=== PATIENT | female | born 1990 | race African-American/Black ===

== ENCOUNTER 2017-07-27 12:32 | Outpatient (CLI) | payer OTHER ==
[2017-07-27] MEDS ORDERED: GADOBUTROL 10 MMOL/10 ML VIAL IVP ONE (14:44)
--- NOTE | 2017-07-28 08:16 | MRI Report ---
EXAM: MRI LUMBAR SPINE WITHOUT AND WITH CONTRAST EXAM DATE: 07/27/2017 03:31 PM. CLINICAL HISTORY: 27-year-old woman status post lumbar laminectomy at L4-L5 for schwannoma removal on 03/31/2017 with possible CSF leak. COMPARISONS: None. TECHNIQUE: Multiplanar, multisequence T1-weighted and fluid-sensitive sequences of the lumbar spine f rom T12 to S1 before and after administration of intravenous contrast. IV contrast: 9 cc Gadavist. Ot her: None. FINDINGS: Spinal Cord: The conus terminates at L1-L2. Cauda equina nerve roots are normal in appearance. No vivien dence of nodularity or abnormal enhancement. Alignment: Normal. No scoliosis or spondylolisthesis. Bone Marrow: Five [id number] lumbar vertebral bodies are present. No gross fractures or bone les ions. No bone marrow edema or abnormal enhancement. Disk Levels/Facets: T12-L1: Unremarkable. L1-L2: Status post L1 laminectomy. No significant central canal or neural foraminal narrowing. L2-L3: Unremarkable. L3-L4: Unremarkable. L4-L5: There is disk desiccation without significant height loss. No significant central canal or di ral foraminal narrowing. L5-S1: Unremarkable. Spinal Canal: No enhancing masses within the spinal canal. No epidural fluid collection. Musculature: Normal. No edema, abnormal enhancement, or fatty atrophy. Other: Postsurgical changes are present in the posterior soft tissues at L1, including enhancing post surgical granulation tissue. No fluid collection along the thecal sac or posterior soft tissues to s uggest CSF leak, postoperative seroma, or abscess. IMPRESSION: 1. Status post L1 laminectomy. No epidural or soft tissue fluid collection to suggest CSF leak, posto perative seroma, or abscess. 2. Conus and cauda equina nerve roots are normal in appearance without nodularity or abnormal enhance ment to suggest residual schwannoma. Comment: The following findings are so common in adults without low back pain that while we report th eir presence, they must be interpreted with caution and in the context of the clinical situation. (Re harmony Vidal et al, Spine 2001) Prevalence of findings in patients without low back pain: Disk degeneration (any evidence): 92% Disk desiccation/T2 signal loss: 83% Disk height loss: 56% Disk bulge: 64% Disk protrusion: 32% Annular tear/high intensity zone: 38% TESS Referring Provider Line: [phone] SITE ID: [id number]
--- NOTE | 2017-07-28 08:19 | MRI Report ---
EXAM MRA BRAIN EXAM DATE: 07/27/2017 03:30 PM. CLINICAL HISTORY: 27-year-old woman with headaches, decreased vision with turning head to left, and h istory of lumbar surgery for neoplasm removal. Concern for CSF leak. COMPARISON: None. TECHNIQUE: Multiplanar, multisequence MRA sequences of the brain were performed. Other: None. Post-pr ocessing: Multiplanar 3D MIP reconstructions. IV Contrast: None. FINDINGS: RIGHT: Visualized Internal Carotid Artery: Patent without significant stenosis. No evidence of aneurysm. Anterior Cerebral Artery: Patent without significant stenosis or aneurysm. Middle Cerebral Artery: Patent without significant stenosis or aneurysm. Posterior Cerebral Artery: Patent without significant stenosis or aneurysm. Posterior Communicating Artery: Patent. No aneurysm. Visualized Vertebral Artery: Patent without significant stenosis. No evidence of dissection or aneury sm. LEFT: Visualized Internal Carotid Artery: Patent without significant stenosis. No evidence of aneurysm. Anterior Cerebral Artery: Patent without significant stenosis or aneurysm. Middle Cerebral Artery: Patent without significant stenosis or aneurysm. Posterior Cerebral Artery: Patent without significant stenosis or aneurysm. Posterior Communicating Artery: Patent. No aneurysm. Visualized Vertebral Artery: Patent without significant stenosis. No evidence of dissection or aneury sm. CENTRAL: Anterior Communicating Artery: Patent. No aneurysm. Basilar: Patent without significant stenosis, dissection, or aneurysm. IMPRESSION: 1. Normal brain MRA. No stenoses or aneurysms. [facility] Referring Provider Line: [phone] SITE ID: [id number]
--- NOTE | 2017-07-28 08:24 | MRI Report ---
EXAM: MR ANGIOGRAM NECK EXAM DATE: 07/27/2017 03:30 PM. CLINICAL HISTORY: 27-year-old woman with headaches, decreased vision when turning head to the left, a nd history of lumbar surgery for neoplasm removal. Concern for CSF leak. COMPARISON: None. TECHNIQUE: Multiplanar, multisequence MRA sequences of the neck were performed. Other: None. Post-pro cessing: Multiplanar 3D MIP reconstructions. IV Contrast: None. Evaluation of arterial stenosis is b ased on a NASCET method of measurement. Patient terminated the exam prematurely due to nausea with contrast. Postcontrast images could not be acquired. FINDINGS: RIGHT Common and Internal carotid: Patent. No dissection or significant stenosis. Flow-related signal loss is present at the bifurcation. External Carotid: Patent. No dissection or significant stenosis. Vertebral: Patent. No dissection or significant stenosis. Flow-related signal loss is present at the V3 segment. LEFT Common and Internal carotid: Patent. No dissection or significant stenosis. Flow-related signal loss is present at the bifurcation. External Carotid: Patent. No dissection or significant stenosis. Vertebral: Patent. No dissection or significant stenosis. Flow-related signal loss is present at the V3 segment. Other: Limited evaluation of the neck soft tissues is unremarkable. IMPRESSION: 1. Normal MRA of the neck. No significant vascular stenosis or dissection. [facility] Referring Provider Line: [phone] SITE ID: [id number]
--- NOTE | 2017-07-28 12:26 | MRI Report ---
EXAM: MRI BRAIN WITHOUT AND WITH CONTRAST EXAM DATE: 07/27/2017 03:30 PM. CLINICAL HISTORY: CSF LEAK AFTER LUMBAR NEOPLASM REMOVAL. When the patient turns her head to the left , she experiences a "curtain" over the vision in the left eye. COMPARISON: MRI lumbar spine 07/27/2017. MRA brain 07/27/2017. TECHNIQUE: Multiplanar, multisequence T1-weighted and fluid-sensitive MR sequences of the brain were performed. Sequences optimized for routine evaluation. Other: None. Without and with IV Contrast: 9 c c Gadavist. FINDINGS: No cerebellar tonsillar ectopia is present. There is no sagging appearance to the midbrain or kishore. No abnormal diffusion signal is identified in the brain parenchyma. A small focus of magnetic suscept ibility is seen in the subcortical white matter of the left occipital lobe just above the occipital h orn. Ventricles and sulci are within normal limits. No extra-axial fluid collection is present. No abnorma l T2 or flair hyperintensities are present in the brain parenchyma. No abnormal T1 shortening is present in the brain parenchyma. Expected enhancement is seen in the jonh or dural venous sinuses. There is a partially empty sella turcica. The pituitary gland enhances in no rmal fashion. Cavernous sinuses enhance in symmetric fashion. No mass is identified in either Meckel's cave. No mass is present in either orbit. Prominent lymph nodes in the upper neck bilaterally might well be reactive in nature. Expected flow voids are seen in the major intracranial vessels at the skull base. IMPRESSION: 1. A tiny focus of magnetic susceptibility in the white matter of the left occipital lobe is nonspeci fic. This is nonspecific and have been described in many entities, including as the sequela of prior trauma or a remote infarct that had a hemorrhagic component. A tiny cavernous malformation or a paren chymal calcification could also have this appearance. 2. There are no MRI findings to suggest intracranial hypotension. 3. No acute CVA is present on diffusion-weighted images. 4. No intracranial mass is identified [facility] Referring Provider Line: [phone] SITE ID: [id number]
== END 2017-07-27 12:33 | disposition home or self-care (01) ==
LOC: DI 12:32
PROVIDERS: ATTEND Family Medicine
DX: R90.89 Other abnormal findings on diagnostic imaging of central nervous system (principal)
CPT/HCPCS: 70544; 70547; 70553; 72158; A9585

== ENCOUNTER 2018-02-05 15:08 | Outpatient (CLI) | payer OTHER | END 2018-02-05 15:09 | disposition home or self-care (01) | LOC: SC 15:08 | PROVIDERS: ATTEND Internal Medicine Pulmonary Disease | DX: G47.30 Sleep apnea, unspecified (principal); G47.10 Hypersomnia, unspecified; R06.83 Snoring; G47.8 Other sleep disorders | CPT/HCPCS: 99203; 99212 ==

== ENCOUNTER 2018-02-22 21:55 | Outpatient (CLI) | payer OTHER | END 2018-02-22 21:56 | disposition home or self-care (01) | LOC: SC 21:55 | PROVIDERS: ATTEND Internal Medicine Pulmonary Disease | DX: G47.30 Sleep apnea, unspecified (principal) | CPT/HCPCS: 95810 ==

== ENCOUNTER 2018-03-20 14:19 | Outpatient (CLI) | payer OTHER | END 2018-03-20 14:20 | disposition home or self-care (01) | LOC: SC 14:19 | PROVIDERS: ATTEND Nurse Practitioner Family | DX: R06.83 Snoring (principal); G47.10 Hypersomnia, unspecified | CPT/HCPCS: 99212; 99214 ==